=== PATIENT | female | born 1980 | race Caucasian/White ===

== ENCOUNTER 2018-12-23 22:10 | Inpatient (IN) | payer MEDICAID ==
[~2018-12-23] VITALS: Ht 162.6 cm; Wt 95.3 kg
[~2018-12-23 22:10] MED LIST: METF-416 MT; enalapril PO; glyburide PO; naproxen PO
[2018-12-24 00:12] LABS: CLARITY URINE CLEAR (CLEAR); COLOR URINE YELLOW (YELLOW); KETONES URINE 3+ (NEGATIVE); LEUKOCYTE ESTERASE URINE NEGATIVE (NEGATIVE); NITRITE URINE NEGATIVE (NEGATIVE); OCCULT BLOOD URINE TRACE (NEGATIVE); PROTEIN URINE NEGATIVE (NEGATIVE); SPECIFIC GRAVITY URINE 1.023 (1.005-1.030)
[2018-12-24] MEDS ORDERED: SODIUM CHLORIDE 0.9% 1,000 ML IV ONE (01:19)
[2018-12-24] MEDS ORDERED: ONDANSETRON HCL 4MG/2ML INJ IV ONE (01:30)
[2018-12-24 02:16] LABS: BASOPHILS % 0.2 % (0.0-2.0); HEMATOCRIT. 38.7 % (36.0-48.0); HEMOGLOBIN. 12.5 g/dL (12.0-16.0); LYMPHOCYTES % 5.7 % (20.0-50.0); MEAN CORPUSCULAR HEMOGLOBIN 27.3 pg (28.0-32.0); MEAN CORPUSCULAR VOLUME 84.7 fL (81.0-99.0); MEAN PLATELET VOLUME 8.9 fl (7.4-10.4); MONOCYTES % 2.8 % (2.0-8.0); NEUTROPHILS % 91.3 % (40.0-76.0); PLATELET 247 x1000/uL (130-400); RED BLOOD CELL COUNT 4.56 mill/uL (4.2-5.4); RED CELL DISTRIBUTION WIDTH 13.3 % (11.6-14.6)
[2018-12-24 02:18] LABS: *BENZODIAZEPINES SCREEN URINE NEGATIVE (NEGATIVE); *COCAINE SCREEN URINE NEGATIVE (NEGATIVE)
[2018-12-24 02:20] LABS: CHLORIDE 107 mEq/L (98-107)
[2018-12-24 02:20] LABS: *AMPHETAMINES SCREEN URINE NEGATIVE (NEGATIVE); *BARBITURATES SCREEN URINE NEGATIVE (NEGATIVE); METHADONE URINE SCREEN NEGATIVE (NEGATIVE); OPIATES URINE SCREEN NEGATIVE (NEGATIVE); PHENCYCLIDINE URINE SCREEN NEGATIVE (NEGATIVE)
[2018-12-24 02:23] LABS: INR 1.1; PARTIAL THROMBOPLASTIN TIME 21.7 sec (23.4-31.0); PROTHROMBIN TIME 11.4 sec (9.1-11.1)
[2018-12-24 02:26] LABS: HCG SCREEN NEGATIVE
[2018-12-24 02:37] LABS: CANNABINOID URINE SCREEN PRESUMTIVE POSITIVE (NEGATIVE)
[2018-12-24] MEDS ORDERED: METOCLOPRAMIDE HCL 10MG/2ML VIAL IV ONE (03:15)
[2018-12-24] MEDS ORDERED: VISCOUS LIDOCAINE 2% 15 ML UDC PO STA (04:20)
[2018-12-24] MEDS ORDERED: MAGNESIUM/ALUMINUM HYDROXIDE/SIMETHICONE 30ML UDC PO STA (04:20)
[2018-12-24 09:00] VITALS: BP 105/53
[2018-12-24] MEDS ORDERED: ATOR10TA69 MT (09:36)
[2018-12-24 11:05] VITALS: BP 97/48
[2018-12-24 12:00] VITALS: BP 115/58
[2018-12-24] MEDS ORDERED: DEXTROSE 50% WATER 50ML SYRINGE IV PRN (12:00)
[2018-12-24] MEDS ORDERED: SODIUM CHLORIDE 0.9% 1,000 ML IV SCH (12:00)
[2018-12-24] MEDS ORDERED: MORPHINE SULFATE 4 MG/ML CPJ (NOT FOR IM USE) IV PRN (12:15)
[2018-12-24] MEDS: BLOOD SUGAR DIAGNOSTIC STRIP TEST SCH ×3 (12:20→21:55)
[2018-12-24] MEDS: METOCLOPRAMIDE HCL 10MG/2ML VIAL IV SCH ×2 (13:21→17:28)
[2018-12-24] MEDS: PANTOPRAZOLE SODIUM 40 MG/VIAL IV SCH (13:21)
[2018-12-24] MEDS: INSULIN LISPRO 100 UNITS/ML SUBCUT SCH ×3 (13:23→21:00)
[2018-12-24 16:00] VITALS: BP 119/57
[2018-12-24 20:00] VITALS: BP 91/51
[2018-12-25] MEDS: BLOOD SUGAR DIAGNOSTIC STRIP TEST SCH ×2 (07:20→11:24)
[2018-12-25 07:37] LABS: HEMATOCRIT 36.6 % (36.0-48.0); HEMOGLOBIN 12.2 g/dL (12.0-16.0); MEAN CORPUSCULAR HEMOGLOBIN 28.4 pg (28.0-32.0); PLATELET 209 x1000/uL (130-400); RED CELL DISTRIBUTION WIDTH 13.2 % (11.6-14.6)
[2018-12-25] MEDS: INSULIN LISPRO 100 UNITS/ML SUBCUT SCH ×2 (07:50→12:50)
[2018-12-25 07:58] LABS: CHLORIDE 108 mEq/L (98-107)
[2018-12-25 08:00] VITALS: BP 111/63
[2018-12-25 08:04] LABS: AMYLASE 25 IU/L (25-115)
[2018-12-25] MEDS: METOCLOPRAMIDE HCL 10MG/2ML VIAL IV SCH ×2 (08:35→11:25)
[2018-12-25] MEDS: PANTOPRAZOLE SODIUM 40 MG/VIAL IV SCH (08:35)
[2018-12-25 11:46] VITALS: BP 109/66
[2018-12-25] MEDS ORDERED: POTASSIUM CHLORIDE INJ 40 MEQ in DEXT 5% WATER 500 ML IV NR (12:00)
[2018-12-25 16:00] VITALS: BP 119/75
[2018-12-25] MEDS ORDERED: POTASSIUM CHLORIDE 20MEQ TABLET SR PO NR (16:00)
[2018-12-25 16:22] VITALS: BP 119/75
== END 2018-12-25 17:00 | disposition home or self-care (01) | DRG 812 ==
LOC: ER 22:10 → 6EST 12-24 04:57 → ENRESERV 12-24 07:41
PROVIDERS: ADMIT Internal Medicine; ATTEND Internal Medicine
DX: T40.7X1A Poisoning by cannabis (derivatives), accidental (unintentional), initial encounter (principal); R65.10 Systemic inflammatory response syndrome (SIRS) of non-infectious origin without acute organ dysfunction; E11.9 Type 2 diabetes mellitus without complications; E78.00 Pure hypercholesterolemia, unspecified; E78.5 Hyperlipidemia, unspecified; I10 Essential (primary) hypertension; K29.70 Gastritis, unspecified, without bleeding; K31.9 Disease of stomach and duodenum, unspecified; Z79.84 Long term (current) use of oral hypoglycemic drugs; Y92.89 Other specified places as the place of occurrence of the external cause
CPT/HCPCS: 36415; 71045; 80048; 80305; 82150; 82962; 83880; 84484; 84703; 85027; 93005; 96374; 96375; 99285; C9113; J1815; J2405; J2765; J3480; J7030; J7060

== ENCOUNTER 2019-04-26 12:46 | Emergency (ER) | payer MEDICAID ==
[~2019-04-26] VITALS: Ht 162.6 cm; Wt 107.0 kg
[~2019-04-26 12:46] MED LIST changes: +ATOR10TA69 MT
[2019-04-26] MEDS ORDERED: SODIUM CHLORIDE 0.9% 1,000 ML IV ONE (13:17)
[2019-04-26 13:44] LABS: CHLORIDE 107 mEq/L (98-107)
[2019-04-26 13:48] LABS: BASOPHILS % 0.4 % (0.0-2.0); EOSINOPHILS % 0.6 % (0.0-5.0); HEMATOCRIT. 37.9 % (36.0-48.0); HEMOGLOBIN. 12.8 g/dL (12.0-16.0); LYMPHOCYTES % 21.4 % (20.0-50.0); MEAN CORPUSCULAR HEMOGLOBIN 28.3 pg (28.0-32.0); MEAN PLATELET VOLUME 8.8 fl (7.4-10.4); MONOCYTES % 5.5 % (2.0-8.0); NEUTROPHILS % 72.1 % (40.0-76.0); PLATELET 260 x1000/uL (130-400); RED BLOOD CELL COUNT 4.51 mill/uL (4.2-5.4); RED CELL DISTRIBUTION WIDTH 13.1 % (11.6-14.6)
[2019-04-26 14:15] LABS: HCG SCREEN NEGATIVE
[2019-04-26 15:37] VITALS: BP 142/79
== END 2019-04-26 15:40 | disposition home or self-care (01) ==
LOC: ER 12:46
DX: I49.3 Ventricular premature depolarization (principal)
CPT/HCPCS: 36415; 80053; 84703; 85025; 93005; 99284; J7030

== ENCOUNTER 2020-02-08 20:55 | Inpatient (IN) | payer MEDICAID ==
[~2020-02-08] VITALS: Ht 162.6 cm; Wt 113.4 kg
[2020-02-08] MEDS ORDERED: SODIUM CHLORIDE 0.9% 1,000 ML IV ONE (22:17)
[2020-02-08] MEDS ORDERED: ONDANSETRON HCL 4MG/2ML INJ IV STA (22:17)
[2020-02-08] MEDS ORDERED: KETOROLAC 30MG/ML VIAL IV STA (22:17)
[2020-02-08 23:06] LABS: BASOPHILS % 0.3 % (0.0-2.0); EOSINOPHILS % 0.1 % (0.0-5.0); HEMATOCRIT. 41.6 % (36.0-48.0); HEMOGLOBIN. 13.8 g/dL (12.0-16.0); LYMPHOCYTES % 9.8 % (20.0-50.0); MEAN CORPUSCULAR VOLUME 84.4 fL (81.0-99.0); MEAN PLATELET VOLUME 9.1 fl (7.4-10.4); MONOCYTES % 3.9 % (2.0-8.0); NEUTROPHILS % 85.9 % (40.0-76.0); PLATELET 241 x1000/uL (130-400); RED BLOOD CELL COUNT 4.93 mill/uL (4.2-5.4); RED CELL DISTRIBUTION WIDTH 13.2 % (11.6-14.6)
[2020-02-08 23:08] LABS: CLARITY URINE CLOUDY (CLEAR); COLOR URINE YELLOW (YELLOW); KETONES URINE 4+ (NEGATIVE); LEUKOCYTE ESTERASE URINE 1+ (NEGATIVE); NITRITE URINE POSITIVE (NEGATIVE); OCCULT BLOOD URINE 2+ (NEGATIVE); PROTEIN URINE 2+ (NEGATIVE); SPECIFIC GRAVITY URINE 1.029 (1.005-1.030); UROBILINOGEN URINE 0.2 E.U./dL (0.2-1.0)
[2020-02-08 23:13] LABS: HCG SCREEN NEGATIVE
[2020-02-08 23:14] LABS: CHLORIDE 106 mEq/L (98-107)
[2020-02-08] MEDS ORDERED: METOCLOPRAMIDE HCL 10MG/2ML VIAL IV ONE (23:30)
[2020-02-08] MEDS ORDERED: CEFTRIAXONE 1 G PREMIX 50 ML IV ONE (23:30)
[2020-02-09] MEDS ORDERED: SODIUM CHLORIDE 0.9% 1,000 ML IV ONE (01:35)
[2020-02-09] MEDS ORDERED: ONDANSETRON HCL 4MG/2ML INJ IV ONE ×2 (01:45→04:00)
[2020-02-09] MEDS: SODIUM CHLORIDE 0.9% 1,000 ML IV SCH ×2 (07:42→18:31)
[2020-02-09] MEDS ORDERED: CLONIDINE 0.1MG TABLET PO PRN (07:45)
[2020-02-09] MEDS ORDERED: DIPHENHYDRAMINE 50MG/ML VIAL IV PRN (07:45)
[2020-02-09] MEDS ORDERED: IPRATROPIUM/ALBUTEROL 0.5-3(2.5)MG/3ML NEB HHN PRN (07:45)
[2020-02-09] MEDS ORDERED: ACETAMINOPHEN 325MG TABLET PO PRN (07:45)
[2020-02-09] MEDS: ONDANSETRON HCL 4MG/2ML INJ IV PRN ×2 (08:20→13:19)
[2020-02-09 09:00] VITALS: BP 154/72
[2020-02-09] MEDS: BLOOD SUGAR DIAGNOSTIC STRIP TEST SCH ×4 (09:00→21:26)
[2020-02-09] MEDS ORDERED: GLIP5TAB12 MT (10:12)
[2020-02-09] MEDS ORDERED: ALBU6.7H9 INH (10:12)
[2020-02-09 10:57] LABS: PHOSPHORUS 2.7 mg/dL (2.5-4.9)
[2020-02-09 12:00] VITALS: BP 157/77
[2020-02-09] MEDS: ENOXAPARIN 40MG/0.4ML SYR SUBCUT SCH ×2 (12:13→20:17)
[2020-02-09 16:00] VITALS: BP 104/57
[2020-02-09] MEDS ORDERED: HYDROCODONE/ACETAMINOPHEN 5/325MG TABLET PO PRN (17:45)
[2020-02-09] MEDS: INSULIN LISPRO (MEDIUM DOSE) 100 UNITS/ML SUBCUT SCH ×2 (17:50→21:35)
[2020-02-09] MEDS: METFORMIN HCL 500MG TABLET PO SCH (18:38)
[2020-02-09] MEDS: GLIPIZIDE 5MG TABLET PO SCH (18:38)
[2020-02-09] MEDS ORDERED: CEFTRIAXONE 1 G PREMIX 50 ML IV SCH ×2 (23:00)
[2020-02-09] MEDS ORDERED: CEFTRIAXONE 1,000 MG in DEXTROSE 5% WATER 50 ML IV SCH (23:00)
[2020-02-10] VITALS: BP 102/55
[2020-02-10 04:00] VITALS: BP 123/69
[2020-02-10] MEDS: SODIUM CHLORIDE 0.9% 1,000 ML IV SCH ×2 (06:09→14:31)
[2020-02-10 06:13] LABS: BASOPHILS % 0.4 % (0.0-2.0); EOSINOPHILS % 0.2 % (0.0-5.0); HEMATOCRIT. 35.6 % (36.0-48.0); HEMOGLOBIN. 11.9 g/dL (12.0-16.0); LYMPHOCYTES % 33.6 % (20.0-50.0); MEAN CORPUSCULAR HEMOGLOBIN 28.2 pg (28.0-32.0); MEAN CORPUSCULAR VOLUME 84.5 fL (81.0-99.0); MEAN PLATELET VOLUME 9.5 fl (7.4-10.4); MONOCYTES % 7.2 % (2.0-8.0); NEUTROPHILS % 58.6 % (40.0-76.0); PLATELET 240 x1000/uL (130-400); RED BLOOD CELL COUNT 4.21 mill/uL (4.2-5.4); RED CELL DISTRIBUTION WIDTH 13.4 % (11.6-14.6)
[2020-02-10 06:53] LABS: CHLORIDE 108 mEq/L (98-107)
[2020-02-10] MEDS: BLOOD SUGAR DIAGNOSTIC STRIP TEST SCH ×4 (06:58→21:34)
[2020-02-10 07:05] LABS: HDL CHOLESTEROL 24 mg/dL (40-59); LDL CHOLESTEROL 110 mg/dL (5-100)
[2020-02-10] MEDS: INSULIN LISPRO (MEDIUM DOSE) 100 UNITS/ML SUBCUT SCH ×4 (07:50→21:48)
[2020-02-10] MEDS: GLIPIZIDE 5MG TABLET PO SCH ×2 (09:01→17:35)
[2020-02-10] MEDS: METFORMIN HCL 500MG TABLET PO SCH ×2 (09:02→17:34)
[2020-02-10] MEDS: ATORVASTATIN CALCIUM 10MG TABLET PO SCH (09:02)
[2020-02-10] MEDS: ENOXAPARIN 30MG/0.3ML SYR SUBCUT SCH ×2 (09:03→21:49)
[2020-02-10 12:00] VITALS: BP 122/66
[2020-02-10] MEDS: CEFAZOLIN 1000MG PREMIX 50 ML IV SCH ×2 (14:31→23:18)
[2020-02-10] MEDS ORDERED: POTASSIUM CHLORIDE INJ 40 MEQ in DEXT 5% WATER 500 ML IV NR (18:00)
[2020-02-10 20:00] VITALS: BP 142/61
[2020-02-10] MEDS ORDERED: POTASSIUM CHLORIDE 20MEQ TABLET SR PO NR (22:00)
[2020-02-11] VITALS: BP 134/68
[2020-02-11 04:00] VITALS: BP 116/69
[2020-02-11] MEDS: CEFAZOLIN 1000MG PREMIX 50 ML IV SCH (05:06)
[2020-02-11] MEDS: SODIUM CHLORIDE 0.9% 1,000 ML IV SCH (05:07)
[2020-02-11] MEDS: BLOOD SUGAR DIAGNOSTIC STRIP TEST SCH ×2 (06:27→11:51)
[2020-02-11 07:37] LABS: BASOPHILS % 0.5 % (0.0-2.0); EOSINOPHILS % 0.5 % (0.0-5.0); HEMOGLOBIN. 12.4 g/dL (12.0-16.0); MEAN CORPUSCULAR HEMOGLOBIN 28.2 pg (28.0-32.0); MEAN CORPUSCULAR VOLUME 84.4 fL (81.0-99.0); MEAN PLATELET VOLUME 9.1 fl (7.4-10.4); MONOCYTES % 6.7 % (2.0-8.0); NEUTROPHILS % 55.3 % (40.0-76.0); PLATELET 230 x1000/uL (130-400); RED BLOOD CELL COUNT 4.38 mill/uL (4.2-5.4); RED CELL DISTRIBUTION WIDTH 13.2 % (11.6-14.6)
[2020-02-11 07:51] LABS: CHLORIDE 109 mEq/L (98-107)
[2020-02-11 08:00] VITALS: BP 142/57
[2020-02-11] MEDS: METFORMIN HCL 500MG TABLET PO SCH (08:28)
[2020-02-11] MEDS: ATORVASTATIN CALCIUM 10MG TABLET PO SCH (08:29)
[2020-02-11] MEDS: ENOXAPARIN 30MG/0.3ML SYR SUBCUT SCH (08:29)
[2020-02-11] MEDS: INSULIN LISPRO (MEDIUM DOSE) 100 UNITS/ML SUBCUT SCH ×2 (08:31→13:13)
[2020-02-11] MEDS: GLIPIZIDE 5MG TABLET PO SCH (08:31)
[2020-02-11 12:00] VITALS: BP 128/72
[2020-02-11] MEDS ORDERED: NITR-87 MT (14:17)
[2020-02-11 16:00] VITALS: BP 129/77
[2020-02-11 16:23] VITALS: BP 121/73
== END 2020-02-11 17:40 | disposition home or self-care (01) | DRG 720 ==
LOC: ER 20:55 → 6EST 02-09 02:25 → ENRESERV 02-09 07:37
PROVIDERS: ADMIT Internal Medicine; ATTEND Internal Medicine
DX: A41.51 Sepsis due to Escherichia coli [E. coli] (principal); Z68.41 Body mass index [BMI] 40.0-44.9, adult; N39.0 Urinary tract infection, site not specified; B96.20 Unspecified Escherichia coli [E. coli] as the cause of diseases classified elsewhere; E11.9 Type 2 diabetes mellitus without complications; E78.00 Pure hypercholesterolemia, unspecified; E78.1 Pure hyperglyceridemia; E66.9 Obesity, unspecified; E78.5 Hyperlipidemia, unspecified; I10 Essential (primary) hypertension; R39.15 Urgency of urination; J45.909 Unspecified asthma, uncomplicated; Z79.84 Long term (current) use of oral hypoglycemic drugs; Z79.899 Other long term (current) drug therapy; Z72.89 Other problems related to lifestyle
CPT/HCPCS: 36415; 71045; 76700; 80048; 80053; 80061; 81003; 82270; 82962; 83735; 84100; 84443; 84484; 84703; 85025; 87077; 87186; 93005; 93970; 99285; J0690; J0696; J1650; J1815; J1885; J2405; J2765; J3480; J7030; J7060

== ENCOUNTER 2021-11-24 09:49 | Emergency (ER) | payer MEDICAID ==
[~2021-11-24] VITALS: Ht 162.6 cm; Wt 102.0 kg
[~2021-11-24 09:49] MED LIST changes: +ALBU6.7H9 INH; +GLIP5TAB12 MT; +NITR-87 MT
[2021-11-24] MEDS ORDERED: KETOROLAC 30MG/ML VIAL IV STA (10:23)
[2021-11-24] MEDS ORDERED: SODIUM CHLORIDE 0.9% 1,000 ML IV ONE (10:30)
[2021-11-24 11:34] LABS: BASOPHILS % 0.3 % (0.0-2.0); EOSINOPHILS % 0.3 % (0.0-5.0); HEMATOCRIT. 41.6 % (36.0-48.0); HEMOGLOBIN. 13.9 g/dL (12.0-16.0); MEAN CORPUSCULAR HEMOGLOBIN 27.9 pg (28.0-32.0); MEAN CORPUSCULAR VOLUME 83.5 fL (81.0-99.0); MEAN PLATELET VOLUME 8.5 fl (7.4-10.4); MONOCYTES % 2.8 % (2.0-8.0); NEUTROPHILS % 86.6 % (40.0-76.0); PLATELET 259 x1000/uL (130-400); RED BLOOD CELL COUNT 4.99 mill/uL (4.2-5.4); RED CELL DISTRIBUTION WIDTH 13.2 % (11.6-14.6)
[2021-11-24 11:41] LABS: CHLORIDE 104 mEq/L (98-107)
[2021-11-24 11:45] LABS: ETHANOL BLOOD < 10 mg/dL
[2021-11-24 12:22] LABS: HCG SCREEN NEGATIVE
[2021-11-24] MEDS ORDERED: ONDANSETRON HCL 4MG/2ML INJ IV ONE (12:30)
[2021-11-24] MEDS ORDERED: CEPH500C2 MT (14:05)
[2021-11-24] MEDS ORDERED: ONDA4TAB5 MT (14:05)
[2021-11-24 15:28] VITALS: BP 157/82
== END 2021-11-24 15:33 | disposition home or self-care (01) ==
LOC: ER 09:49
DX: R10.12 Left upper quadrant pain (principal); R11.0 Nausea; R73.9 Hyperglycemia, unspecified; E87.5 Hyperkalemia; R03.0 Elevated blood-pressure reading, without diagnosis of hypertension; K76.0 Fatty (change of) liver, not elsewhere classified
CPT/HCPCS: 36415; 74176; 80053; 80320; 82962; 83690; 84703; 85025; 93005; 96361; 96374; 96375; 99285; J1885; J2405; J7030; G0480

== ENCOUNTER 2022-07-31 17:25 | Emergency (ER) | payer MEDICAID ==
[~2022-07-31] VITALS: Ht 162.6 cm; Wt 100.0 kg
[~2022-07-31 17:25] MED LIST changes: +ALBU6.7H3 INH; -ALBU6.7H9 INH; +CEPH500C2 MT; +ONDA4TAB5 MT
[2022-07-31] MEDS ORDERED: CARB100C9 MT (21:04)
[2022-07-31 21:19] VITALS: BP 127/78
== END 2022-07-31 21:20 | disposition home or self-care (01) ==
LOC: ER 17:25
DX: G50.0 Trigeminal neuralgia (principal); M26.601 Right temporomandibular joint disorder, unspecified
CPT/HCPCS: 70486; 81025; 99284

== ENCOUNTER 2022-09-04 15:12 | Emergency (ER) | payer MEDICAID ==
[~2022-09-04] VITALS: Ht 162.6 cm; Wt 102.0 kg
[~2022-09-04 15:12] MED LIST changes: +CARB100C9 MT
[2022-09-04 15:38] VITALS: BP 137/78
[2022-09-04 18:29] LABS: BASOPHILS % 0.6 % (0.0-2.0); EOSINOPHILS % 1.3 % (0.0-5.0); HEMATOCRIT. 42.2 % (36.0-48.0); HEMOGLOBIN. 14.3 g/dL (12.0-16.0); LYMPHOCYTES % 27.3 % (20.0-50.0); MEAN CORPUSCULAR HEMOGLOBIN 28.7 pg (28.0-32.0); MEAN CORPUSCULAR VOLUME 84.5 fL (81.0-99.0); MEAN PLATELET VOLUME 8.5 fl (7.4-10.4); MONOCYTES % 4.6 % (2.0-8.0); NEUTROPHILS % 66.2 % (40.0-76.0); PLATELET 274 x1000/uL (130-400); RED BLOOD CELL COUNT 4.99 mill/uL (4.2-5.4); RED CELL DISTRIBUTION WIDTH 13.2 % (11.6-14.6)
[2022-09-04 18:36] LABS: CHLORIDE 103 mEq/L (98-107)
[2022-09-04 18:45] LABS: B-HCG QUANTITATIVE < 1 mIU/mL (<3); PROTHROMBIN TIME 10.3 sec (9.6-11.0)
[2022-09-04 20:30] LABS: CLARITY URINE CLOUDY (CLEAR); COLOR URINE YELLOW (YELLOW); KETONES URINE 2+ (NEGATIVE); LEUKOCYTE ESTERASE URINE 2+ (NEGATIVE); NITRITE URINE POSITIVE (NEGATIVE); OCCULT BLOOD URINE 3+ (NEGATIVE); PROTEIN URINE 1+ (NEGATIVE); SPECIFIC GRAVITY URINE 1.025 (1.005-1.030)
[2022-09-04] MEDS ORDERED: NITR-87 MT (20:55)
[2022-09-04] MEDS ORDERED: DIF15 MT (20:58)
== END 2022-09-04 21:15 | disposition home or self-care (01) ==
LOC: ER 15:12
DX: N39.0 Urinary tract infection, site not specified (principal); B96.20 Unspecified Escherichia coli [E. coli] as the cause of diseases classified elsewhere; N83.201 Unspecified ovarian cyst, right side; I10 Essential (primary) hypertension; E11.9 Type 2 diabetes mellitus without complications; E78.5 Hyperlipidemia, unspecified; Z79.899 Other long term (current) drug therapy; Z79.84 Long term (current) use of oral hypoglycemic drugs
CPT/HCPCS: 36415; 76830; 76856; 80053; 81003; 81025; 84702; 85025; 86850; 86900; 87077; 87186; 99284

== ENCOUNTER 2022-11-10 17:17 | Emergency (ER) | payer MEDICAID ==
[~2022-11-10] VITALS: Ht 162.6 cm; Wt 100.0 kg
[~2022-11-10 17:17] MED LIST changes: +DIF15 MT
[2022-11-10 17:53] VITALS: BP 159/66
[2022-11-10] MEDS ORDERED: ONDANSETRON HCL 4MG/2ML INJ IV STA (20:51)
[2022-11-10] MEDS ORDERED: SODIUM CHLORIDE 0.9% 1,000 ML IV ONE (21:00)
[2022-11-10 21:11] LABS: CLARITY URINE CLEAR (CLEAR); COLOR URINE YELLOW (YELLOW); KETONES URINE 4+ (NEGATIVE); LEUKOCYTE ESTERASE URINE NEGATIVE (NEGATIVE); NITRITE URINE NEGATIVE (NEGATIVE); OCCULT BLOOD URINE NEGATIVE (NEGATIVE); PH URINE 5.5 (4.5-8.0); PROTEIN URINE 1+ (NEGATIVE); SPECIFIC GRAVITY URINE 1.048 (1.005-1.030); UROBILINOGEN URINE 0.2 E.U./dL (0.2-1.0)
[2022-11-10 21:16] LABS: BASOPHILS % 0.2 % (0.0-2.0); HEMATOCRIT. 42.4 % (36.0-48.0); HEMOGLOBIN. 14.1 g/dL (12.0-16.0); LYMPHOCYTES % 8.9 % (20.0-50.0); MEAN CORPUSCULAR HEMOGLOBIN 28.4 pg (28.0-32.0); MEAN CORPUSCULAR VOLUME 85.3 fL (81.0-99.0); MEAN PLATELET VOLUME 8.3 fl (7.4-10.4); NEUTROPHILS % 87.9 % (40.0-76.0); PLATELET 294 x1000/uL (130-400); RED BLOOD CELL COUNT 4.97 mill/uL (4.2-5.4); RED CELL DISTRIBUTION WIDTH 13.6 % (11.6-14.6)
[2022-11-10 21:29] LABS: CHLORIDE 105 mEq/L (98-107)
[2022-11-10 21:39] LABS: BETA HYDROXYBUTYRATE 1.2 mMol/L (0.0-0.3)
== END 2022-11-11 | disposition left against medical advice (07) ==
LOC: ER 17:17
DX: R11.2 Nausea with vomiting, unspecified (principal); E11.65 Type 2 diabetes mellitus with hyperglycemia; D72.829 Elevated white blood cell count, unspecified; K76.0 Fatty (change of) liver, not elsewhere classified; R94.31 Abnormal electrocardiogram [ECG] [EKG]; Z79.84 Long term (current) use of oral hypoglycemic drugs; Z79.899 Other long term (current) drug therapy
CPT/HCPCS: 36415; 71045; 74176; 80053; 81003; 81025; 82010; 83605; 83690; 84484; 85025; 93005; 96361; 96374; 99285; J2405; J7030; Z7610

== ENCOUNTER 2024-08-19 12:29 | Emergency (ER) | payer MEDICAID, OTHER ==
[~2024-08-19] VITALS: Ht 162.6 cm; Wt 99.7 kg
[~2024-08-19 12:29] MED LIST changes: -GLIP5TAB12 MT; +GLIP5TAB22 MT
[2024-08-19 12:34] VITALS: O2SAT 95
[2024-08-19 14:20] LABS: CLARITY URINE CLOUDY (CLEAR); COLOR URINE ORANGE (YELLOW); GLUCOSE URINE 2+ (NEGATIVE); KETONES URINE 3+ (NEGATIVE); LEUKOCYTE ESTERASE URINE 1+ (NEGATIVE); NITRITE URINE POSITIVE (NEGATIVE); OCCULT BLOOD URINE 3+ (NEGATIVE); PH URINE 5.5 (4.5-8.0); PROTEIN URINE 3+ (NEGATIVE); SPECIFIC GRAVITY URINE 1.028 (1.005-1.030)
[2024-08-19] MEDS: SODIUM CHLORIDE 0.9% 1,000 ML IV ONE (14:29)
[2024-08-19] MEDS: PREDNISONE 20MG TABLET PO STA (14:29)
[2024-08-19] MEDS: ACETAMINOPHEN 325MG TABLET PO ONE (14:29)
[2024-08-19 14:39] LABS: SQUAMOUS EPITHELIAL CELL URINE 3+ /lpf (RARE/1+)
[2024-08-19 14:40] LABS: MUCUS URINE 1+ /lpf (< = 2+)
[2024-08-19 14:41] LABS: RBC URINE 25-50 /hpf (0-2)
[2024-08-19 14:42] LABS: BACTERIA URINE 3+
[2024-08-19 15:00] VITALS: PULSE 98; RESP 24
[2024-08-19] MEDS: ALBUTEROL (0.083%) 2.5MG/3ML NEB HHN STA (15:00)
[2024-08-19] MEDS: IPRATROPIUM BROMIDE (0.02%) 0.5MG/2.5ML NEB HHN STA (15:01)
[2024-08-19 15:47] LABS: BASOPHILS % 0.3 % (0.0-2.0); EOSINOPHILS % 0.2 % (0.0-5.0); LYMPHOCYTES % 15.2 % (20.0-50.0); MEAN CORPUSCULAR HEMOGLOBIN 28.9 pg (28.0-32.0); MEAN CORPUSCULAR HGB CONC 33.3 g/dL (31.0-37.0); MEAN CORPUSCULAR VOLUME 86.7 fL (81.0-99.0); MEAN PLATELET VOLUME 8.6 fl (7.4-10.4); MONOCYTES % 10.5 % (2.0-8.0); NEUTROPHILS % 73.8 % (40.0-76.0); PLATELET 192 x1000/uL (130-400); RED CELL DISTRIBUTION WIDTH 13.2 % (11.6-14.6); WHITE BLOOD COUNT 11.4 x1000/uL (4.5-11.0)
[2024-08-19 15:52] LABS: CHLORIDE 105 mEq/L (98-107); POTASSIUM 3.2 mEq/L (3.5-5.1); SODIUM 135 mEq/L (136-145)
[2024-08-19 15:53] LABS: CARBON DIOXIDE 19 mEq/L (21-32)
[2024-08-19 15:54] LABS: CALCIUM 8.8 mg/dL (8.7-10.4)
[2024-08-19 15:58] LABS: CREATININE 0.7 mg/dL (0.6-1.0); GLUCOSE 211 mg/dL (70-105)
[2024-08-19 15:59] LABS: TROPONIN I HIGH SENSITIVITY 5 ng/L (3.0-34); UREA NITROGEN BLOOD 6 mg/dL (9-23)
[2024-08-19 16:00] LABS: ALANINE AMINOTRANSFERASE 18 IU/L (10-49); ALBUMIN 4.3 g/dL (3.2-4.8); ASPARTATE AMINOTRANSFERASE 14 IU/L (<34)
[2024-08-19 16:01] LABS: BILIRUBIN DIRECT 0.3 mg/dL (<=3.0); BILIRUBIN TOTAL 0.8 mg/dL (0.1-1.0)
[2024-08-19 16:06] LABS: INR 1.1; PROTHROMBIN TIME 11.7 sec (9.6-11.0)
[2024-08-19] MEDS ORDERED: P20 MT (16:49)
[2024-08-19 16:52] LABS: HCG SCREEN NEGATIVE
[2024-08-19 17:53] LABS: TROPONIN I HIGH SENSITIVITY 4 ng/L (3.0-34)
[2024-08-19] MEDS ORDERED: AZIT500T8 MT (19:13)
[2024-08-19] MEDS ORDERED: NITR-87 MT (19:13)
[2024-08-19] MEDS ORDERED: ALBU05 NEB (19:13)
[2024-08-19] MEDS ORDERED: ALBU18HF2 IH (19:13)
[2024-08-19] MEDS: POTASSIUM CHLORIDE 20MEQ TABLET SR PO ONE (19:15)
[2024-08-19 20:13] VITALS: BP 135/77; PULSE 97; RESP 20; TEMP 36.83628; O2SAT 100
[2024-08-19] MEDS ORDERED: IOHEXOL-350 100 ML BOTTLE ONE (23:27)
== END 2024-08-19 20:17 | disposition home or self-care (01) ==
LOC: ER 12:29
DX: R06.02 Shortness of breath (principal); E87.6 Hypokalemia; N39.0 Urinary tract infection, site not specified; J18.9 Pneumonia, unspecified organism; I10 Essential (primary) hypertension; J45.909 Unspecified asthma, uncomplicated; E11.9 Type 2 diabetes mellitus without complications; E78.00 Pure hypercholesterolemia, unspecified; Z79.899 Other long term (current) drug therapy
CPT/HCPCS: 80076; 80048; 81003; 84703; 83880; 83690; 85025; 85379; 85610; 84484; 36415; 71045; 71275; 94640; 93005; 96360; 96361; 99291; Q9967; J7512; Z7610 ×5; J7030